=== PATIENT | female | born 1945 | race Native Hawaiian/Other Pacific Islander ===

== ENCOUNTER 2017-03-19 16:06 | Outpatient (CLI) | payer OTHER | END 2017-03-19 17:15 | disposition home or self-care (01) | LOC: MAMMO 16:06 | DX: Z12.31 Encounter for screening mammogram for malignant neoplasm of breast (principal) | CPT/HCPCS: G0202-TC ==

== ENCOUNTER 2017-03-31 08:04 | Outpatient (CLI) | payer OTHER ==
[2017-03-31 08:26] LABS: PLATELET COUNT 232 K/uL (152-353)
[2017-03-31 08:46] LABS: POTASSIUM 3.9 mmol/L (3.6-5.2)
== END 2017-03-31 19:00 | disposition home or self-care (01) ==
LOC: LABW 08:04
DX: I10 Essential (primary) hypertension (principal); E78.4 Other hyperlipidemia; R63.4 Abnormal weight loss; R53.1 Weakness
CPT/HCPCS: 36415; 80053; 80061; 84436; 84443; 85027

== ENCOUNTER 2018-06-09 09:05 | Outpatient (CLI) | payer OTHER | END 2018-06-09 19:48 | disposition home or self-care (01) | LOC: MAMMO 09:05 | DX: Z12.31 Encounter for screening mammogram for malignant neoplasm of breast (principal) ==

== ENCOUNTER 2019-07-28 09:17 | Outpatient (CLI) | payer OTHER | END 2019-07-28 19:27 | disposition home or self-care (01) | LOC: MAMMO 09:17 | DX: Z12.31 Encounter for screening mammogram for malignant neoplasm of breast (principal) ==

== ENCOUNTER 2021-07-11 13:52 | Outpatient (CLI) | payer OTHER | END 2021-07-11 19:13 | disposition home or self-care (01) | LOC: MAMMO 13:52 | PROVIDERS: ATTEND Nurse Practitioner Family | DX: Z12.31 Encounter for screening mammogram for malignant neoplasm of breast (principal) ==

== ENCOUNTER 2023-03-17 15:18 | Outpatient (CLI) | payer OTHER | END 2023-03-17 20:26 | disposition home or self-care (01) | LOC: MAMMO 15:18 | PROVIDERS: ATTEND Nurse Practitioner Family | DX: Z12.31 Encounter for screening mammogram for malignant neoplasm of breast (principal) ==